=== PATIENT | male | born 1955 | race Caucasian/White ===

== ENCOUNTER 2024-07-03 06:03 | Day surgery (SDC) | payer MEDICARE, MEDICAID ==
[2024-07-03] MEDS ORDERED: Midazolam 1 MG/ML 2 ML SDV ONE (06:15)
[2024-07-03] MEDS ORDERED: fentaNYL 100 MCG/2 ML SDV IV ONE (06:15)
[2024-07-03] MEDS ORDERED: Midazolam 1 MG/ML 2 ML SDV IV ONE (06:15)
[2024-07-03] MEDS ORDERED: fentaNYL 100 MCG/2 ML SDV ONE (06:15)
[2024-07-03] MEDS: Dextrose 5%-0.45% NaCl 1,000 ML IV SCH (06:47)
[2024-07-03] MEDS: fentaNYL 100 MCG/2 ML SDV IV ONE ×2 (07:52)
[2024-07-03] MEDS: Midazolam 1 MG/ML 2 ML SDV IV ONE ×2 (07:53)
== END 2024-07-03 09:33 | disposition home or self-care (01) ==
LOC: DL.ENDO 06:03
PROVIDERS: ATTEND Internal Medicine Gastroenterology
DX: K31.89 Other diseases of stomach and duodenum (principal); I10 Essential (primary) hypertension; E11.9 Type 2 diabetes mellitus without complications; E78.5 Hyperlipidemia, unspecified
CPT/HCPCS: 43239; J2250; J3010; J7799; 88305